=== PATIENT | male | born 1935 | race Hispanic/Latino ===

== ENCOUNTER 2019-06-25 | Day surgery (SDC) | payer MEDICARE, MEDICAID ==
[~2019-06-25] MED LIST: ALUPENT; BAYER ASPIRIN E81 MG PO; CAPTOPRIL25 MG PO; COUMADIN2.5 MG PO; COUMADIN5 MG PO; ELIQUIS5 MG PO; EQ ASPIRIN LOW81 MG PO; FLEXERIL5 M1 PO; LISINOPRIL5 MG PO; MAXZIDE PO; MELOXICAM15 MG PO; NITROSTAT0.4 MG SL; TAMSULOSIN HCL0.4 MG PO; XANAX0.25 MG PO; [UNRECOGNIZED DRUG - OTHER] PO
[2019-06-25] MEDS ORDERED: PERCOCET 10/31 COMBO PO (13:53)
[2019-10-01] MEDS ORDERED: CHELATED ZINC PO (09:43)
[2019-10-01] MEDS ORDERED: FUROSEMIDE20 MG PO (09:43)
[2019-10-01] MEDS ORDERED: SAW PALMETTO1000 MG PO (09:43)
== END 2019-06-25 14:43 | disposition home health service (06) ==
PROC: 0TBB8ZX Excision of Bladder, Via Natural or Artificial Opening Endoscopic, Diagnostic (ICD-10-PCS; principal; 2019-06-25)
DX: C67.8 Malignant neoplasm of overlapping sites of bladder (principal); N40.1 Benign prostatic hyperplasia with lower urinary tract symptoms; R35.1 Nocturia; R39.12 Poor urinary stream; N28.1 Cyst of kidney, acquired; I25.10 Atherosclerotic heart disease of native coronary artery without angina pectoris; I48.91 Unspecified atrial fibrillation; I11.0 Hypertensive heart disease with heart failure; I50.9 Heart failure, unspecified; Z95.0 Presence of cardiac pacemaker; Z79.82 Long term (current) use of aspirin; Z79.01 Long term (current) use of anticoagulants
CPT/HCPCS: J0131

== ENCOUNTER 2019-10-08 05:52 | Day surgery (SDC) | payer MEDICARE, MEDICAID ==
[~2019-10-08 05:52] MED LIST changes: +CHELATED ZINC PO; +FUROSEMIDE20 MG PO; +PERCOCET 10/31 COMBO PO; +SAW PALMETTO1000 MG PO
[2019-10-08 09:11] VITALS: BP 146/74
[2019-10-08] MEDS ORDERED: ONDANSETRON4 MG PO (21:00)
== END 2019-10-08 09:40 | disposition home or self-care (01) ==
LOC: ORM 05:52
PROVIDERS: ATTEND Urology
PROC: 0TBB8ZX Excision of Bladder, Via Natural or Artificial Opening Endoscopic, Diagnostic (ICD-10-PCS; principal; 2019-10-08)
PROC: 0W3R8ZZ Control Bleeding in Genitourinary Tract, Via Natural or Artificial Opening Endoscopic (ICD-10-PCS; 2019-10-08)
DX: C67.8 Malignant neoplasm of overlapping sites of bladder (principal); N40.1 Benign prostatic hyperplasia with lower urinary tract symptoms; N13.8 Other obstructive and reflux uropathy; R35.1 Nocturia; I11.0 Hypertensive heart disease with heart failure; I50.9 Heart failure, unspecified; I48.91 Unspecified atrial fibrillation; Z11.59 Encounter for screening for other viral diseases; R33.9 Retention of urine, unspecified; R10.30 Lower abdominal pain, unspecified; R10.2 Pelvic and perineal pain; C61 Malignant neoplasm of prostate; I10 Essential (primary) hypertension; Z98.890 Other specified postprocedural states
CPT/HCPCS: J2710; Q9967

== ENCOUNTER 2019-10-08 17:45 | Emergency (ER) | payer MEDICARE, MEDICAID ==
[2019-10-08 19:02] LABS: HEMATOCRIT 37.8 % (39.0-50.0); HEMOGLOBIN 12.1 g/dl (14.0-18.0); IMMATURE GRANULOCYTES 0.4 % (0.0-5.0); MEAN CELL VOLUME 85.9 fL CALC (80.0-100.0); MEAN CORPUSCULAR HGB 27.5 pG CALC (26.0-32.0); NEUT# 8.02 thou/uL (1.82-7.42); RED BLOOD COUNT 4.4 mill/uL (4.70-6.10); RED CELL DISTRI WIDTH 14.5 % (11.5-15.5)
[2019-10-08 19:24] LABS: ALBUMIN 3.8 g/dL (3.2-5.0); ALKALINE PHOSPHATASE 113 u/l (38-126); BILIRUBIN, TOTAL 0.8 mg/dL (0.0-1.4); BUN 13 mg/dL (8-23); BUN/CREATININE RATIO 14 (12-20 (CALC)); CHLORIDE 97 mmol/l (95-108); CREATININE 0.9 mg/dL (0.7-1.3); GFR > 60 ML/MIN (>=60 (CALC)); GFR FOR AFR.AMER. > 60 ML/MIN (>=60 (CALC)); POTASSIUM 4.4 mmol/l (3.5-5.1); SGOT/AST 31 u/l (19-48); TOTAL PROTEIN 7.2 g/dL (6.3-8.2)
[2019-10-08 19:26] LABS: ANION GAP 16 (6-22 (CALC)); CARBON DIOXIDE 20 mmol/l (22-30); SODIUM 129 mmol/l (137-146)
[2019-10-08] MEDS ORDERED: ONDANSETRON4 MG PO (21:00)
[2019-10-08 22:04] VITALS: BP 140/75
[2019-10-08 22:17] LABS: URINE BILIRUBIN - DIPSTICK NEGATIVE (NEGATIVE); URINE BLOOD DIPSTICK LARGE (NEGATIVE); URINE COLOR YELLOW; URINE GLUCOSE - DIPSTICK NEGATIVE (NEGATIVE); URINE KETONE NEGATIVE (NEGATIVE); URINE LEUK ESTERASE TRACE (NEGATIVE); URINE NITRITE - DIPSTICK NEGATIVE (Negative); URINE PH 6.5 (4.5-8.0); URINE PROTEIN - DIPSTICK NEGATIVE (NEG-TRACE); URINE UROBILINOGEN - DIPSTICK 0.2 E.U./dL (0.2)
[2019-10-08 22:27] LABS: URINE RBC TNTC RBC/hpf (0-5); URINE SQUAMOUS EPITHELIAL CELL FEW EPI/hpf (0-FEW)
== END 2019-10-08 21:40 | disposition home or self-care (01) ==
LOC: ED 17:45
PROVIDERS: Emergency Medicine; Student in an Organized Health Care Education/Training Program
DX: R10.2 Pelvic and perineal pain (principal); C61 Malignant neoplasm of prostate; I10 Essential (primary) hypertension; Z98.890 Other specified postprocedural states
CPT/HCPCS: Q9967

== ENCOUNTER 2021-05-09 12:19 | Emergency (ER) | payer MEDICARE, OTHER ==
[~2021-05-09] VITALS: Ht 157.5 cm; Wt 63.6 kg
[~2021-05-09 12:19] MED LIST changes: +ASPIRIN81 MG PO; +LOSARTAN POTASS25 MG PO; +ONDANSETRON4 MG PO; +POTASSIUM99 MG PO; +PRAVASTATIN20 MG PO; +VITAMIN D PO
[2021-05-09 15:36] VITALS: BP 120/72
== END 2021-05-09 16:30 | disposition home or self-care (01) ==
LOC: ED 12:19
PROC: 0D20XUZ Change Feeding Device in Upper Intestinal Tract, External Approach (ICD-10-PCS; principal; 2021-05-09)
DX: Z43.1 Encounter for attention to gastrostomy (principal); I10 Essential (primary) hypertension; F03.90 Unspecified dementia, unspecified severity, without behavioral disturbance, psychotic disturbance, mood disturbance, and anxiety; Z86.73 Personal history of transient ischemic attack (TIA), and cerebral infarction without residual deficits

== ENCOUNTER 2021-06-13 11:02 | Emergency (ER) | payer MEDICARE, OTHER ==
[~2021-06-13] VITALS: Ht 157.5 cm; Wt 50.0 kg
[2021-06-13 11:06] VITALS: BP 170/90
== END 2021-06-13 15:30 | disposition home or self-care (01) ==
LOC: ED 11:02
PROC: 0D20XUZ Change Feeding Device in Upper Intestinal Tract, External Approach (ICD-10-PCS; principal; 2021-06-13)
DX: Z46.59 Encounter for fitting and adjustment of other gastrointestinal appliance and device (principal); I10 Essential (primary) hypertension; Z86.73 Personal history of transient ischemic attack (TIA), and cerebral infarction without residual deficits

== ENCOUNTER 2021-07-06 20:26 | Emergency (ER) | payer MEDICARE, OTHER ==
[~2021-07-06] VITALS: Ht 157.5 cm; Wt 42.0 kg
[2021-07-06] MEDS ORDERED: METOPROL TAR25 MG PO (21:09)
[2021-07-06] MEDS ORDERED: FOLIC ACID1 MG PO (21:09)
[2021-07-06] MEDS ORDERED: LEVETIRACETAM IV (21:10)
[2021-07-06] MEDS ORDERED: BUMETANIDE1 MG PO (21:10)
[2021-07-06 21:36] LABS: HEMATOCRIT 37.7 % (39.0-50.0); HEMOGLOBIN 13.1 g/dl (14.0-18.0); IMMATURE GRANULOCYTES 0.3 % (0.0-5.0); MEAN CORPUSCULAR HGB 32.4 pG CALC (26.0-32.0); MEAN CORPUSCULAR HGB CONC 34.7 g/dL CAL (32.0-36.0); NEUT# 18.09 thou/uL (1.82-7.42); RED BLOOD COUNT 4.04 mill/uL (4.70-6.10); RED CELL DISTRI WIDTH 12.7 % (11.5-15.5)
[2021-07-06 21:39] LABS: MEAN CELL VOLUME 93.3 fL CALC (80.0-100.0)
[2021-07-06 21:44] LABS: ALBUMIN 3.4 g/dL (3.2-5.0); ALKALINE PHOSPHATASE 102 u/l (38-126); ANION GAP 18 (6-22 (CALC)); BILIRUBIN, TOTAL 1.1 mg/dL (0.0-1.4); BUN 30 mg/dL (8-23); BUN/CREATININE RATIO 33 (12-20 (CALC)); CARBON DIOXIDE 24 mmol/l (22-30); CHLORIDE 87 mmol/l (95-108); CREATININE 0.9 mg/dL (0.7-1.3); GFR > 60 ML/MIN (>=60 (CALC)); GFR FOR AFR.AMER. > 60 ML/MIN (>=60 (CALC)); POTASSIUM 4.5 mmol/l (3.5-5.1); SGOT/AST 56 u/l (19-48); SODIUM 124 mmol/l (137-146); TOTAL PROTEIN 6.9 g/dL (6.3-8.2)
[2021-07-06 21:46] LABS: ACT PARTIAL THROMBO TIME 25.1 SECONDS (20.0-32.5); INTERNATIONAL NORMALIZED RATIO 1.1 RATIO (0.7-1.3); PROTHROMBIN TIME 11.6 SECONDS (9.0-12.5)
[2021-07-06 22:58] LABS: CPK 2392 u/l (52-200)
[2021-07-06 23:16] LABS: MYOGLOBIN 690 ng/mL (0 - 121)
[2021-07-06 23:38] LABS: URINE BILIRUBIN - DIPSTICK NEGATIVE (NEGATIVE); URINE BLOOD DIPSTICK NEGATIVE (NEGATIVE); URINE COLOR YELLOW; URINE GLUCOSE - DIPSTICK NEGATIVE (NEGATIVE); URINE KETONE NEGATIVE (NEGATIVE); URINE LEUK ESTERASE NEGATIVE (NEGATIVE); URINE PROTEIN - DIPSTICK NEGATIVE (NEG-TRACE); URINE SPECIFIC GRAVITY <=1.005; URINE UROBILINOGEN - DIPSTICK 0.2 E.U./dL (0.2)
[2021-07-06 23:40] LABS: URINE NITRITE - DIPSTICK NEGATIVE (Negative)
[2021-07-07 00:27] VITALS: BP 136/82
--- NOTE | 2021-07-08 08:18 | NUR ---
Preliminary blood culture results of 1/4 bottles growing gram positive cocci called to nurse Carbone at [facility]. Faxed copy to [facility]ona at [phone].
--- NOTE | 2021-07-09 08:55 | NUR ---
Faxed the final blood culture result to Sonia from [facility] at [phone].
== END 2021-07-07 00:29 | disposition short-term general hospital (02) ==
LOC: ED 20:26
PROVIDERS: Family Medicine
DX: I99.8 Other disorder of circulatory system (principal); J18.9 Pneumonia, unspecified organism; I69.128 Other speech and language deficits following nontraumatic intracerebral hemorrhage; I69.151 Hemiplegia and hemiparesis following nontraumatic intracerebral hemorrhage affecting right dominant side; I10 Essential (primary) hypertension; S81.811A Laceration without foreign body, right lower leg, initial encounter; X58.XXXA Exposure to other specified factors, initial encounter; Z20.822 Contact with and (suspected) exposure to COVID-19
CPT/HCPCS: J1644; J2060; Q9967